=== PATIENT | female | born 1945 ===

== ENCOUNTER 2019-09-06 12:00 | Day surgery (SDC) | payer OTHER | END 2019-09-06 16:05 | disposition home or self-care (01) | LOC: AMB-ENDOS 12:00 → CIR.AMB 12:00 | PROVIDERS: ATTEND Surgery | DX: K62.89 Other specified diseases of anus and rectum (principal); K64.8 Other hemorrhoids ==

== ENCOUNTER 2019-10-13 11:30 | Inpatient (IN) | payer OTHER ==
[~2019-10-13] VITALS: Ht 167.6 cm; Wt 85.7 kg
[2019-10-13] MEDS ORDERED: COZAAR50 MG PO (13:44)
[2019-10-13] MEDS ORDERED: SYNTHROID125 MCG PO (13:44)
[2019-10-13] MEDS ORDERED: METOPROLOL SUCC25 MG PO (13:45)
[2019-10-13] MEDS ORDERED: HORIZANT300 MG PO (13:45)
[2019-10-13] MEDS ORDERED: OMEPRAZOLE20 M2 PO (13:45)
[2019-10-13] MEDS ORDERED: NORVASC10 MG PO (13:46)
[2019-10-13] MEDS ORDERED: CRESTOR20 MG PO (13:46)
[2019-10-23] MEDS ORDERED: HYOSCYAMINE0.125 M1 SL (12:15)
[2019-10-23] MEDS ORDERED: ULTRACET PO (12:16)
[2019-10-23] MEDS ORDERED: OMEPRAZOLE20 M2 PO (12:16)
[2019-10-23] MEDS ORDERED: POLY119PG PO (12:16)
[2019-10-23] MEDS ORDERED: INTESTINEX680 M1 PO (12:17)
== END 2019-10-23 13:28 | disposition home or self-care (01) | DRG 331 ==
LOC: SURG 10-20 08:38 → O/R 10-20 08:38 → SURG 10-20 15:15
PROVIDERS: ADMIT Surgery; ATTEND Surgery
PROC: 0DJD8ZZ Inspection of Lower Intestinal Tract, Via Natural or Artificial Opening Endoscopic (ICD-10-PCS; 2019-10-20)
PROC: 0DTN4ZZ Resection of Sigmoid Colon, Percutaneous Endoscopic Approach (ICD-10-PCS; principal; 2019-10-20 11:30)
DX: K57.32 Diverticulitis of large intestine without perforation or abscess without bleeding (principal); Z20.828 Contact with and (suspected) exposure to other viral communicable diseases; I13.10 Hypertensive heart and chronic kidney disease without heart failure, with stage 1 through stage 4 chronic kidney disease, or unspecified chronic kidney disease; N18.3 Chronic kidney disease, stage 3 (moderate)